=== PATIENT | male | born 1985 | race Caucasian/White ===

== ENCOUNTER 2022-01-17 17:28 | Emergency (ER) | payer OTHER, BC ==
[2022-01-17] MEDS ORDERED: Acetaminophen/oxyCODONE 325-5 MG Tab PO ONE (18:01)
[2022-01-17] MEDS ORDERED: Doxycycline 100 MG Cap PO ONE (18:01)
[2022-01-17] MEDS ORDERED: Sulfamethoxazole/Trimethoprim 800-160 MG Tab PO ONE (18:02)
[2022-01-17] MEDS ORDERED: Lidocaine 1% 10 ML MDV INJECT ONE (18:18)
== END 2022-01-17 20:00 | disposition home or self-care (01) ==
LOC: JD.ED 17:28
DX: N49.2 Inflammatory disorders of scrotum (principal); Z88.0 Allergy status to penicillin
CPT/HCPCS: 54700; 99283; A9270; 10060

== ENCOUNTER 2022-01-29 05:39 | Emergency (ER) | payer BC ==
[2022-01-29] MEDS ORDERED: methylPREDNISolone Sodium Succinate 125 MG/2 ML SDV ONE (05:42)
[2022-01-29] MEDS ORDERED: Famotidine 20 MG/2 ML SDV ONE ×2 (05:42→05:44)
[2022-01-29] MEDS ORDERED: diphenhydrAMINE 50 MG/ML SDV ONE (05:42)
[2022-01-29] MEDS ORDERED: EPINEPHrine 1:10,000 1 MG/10 ML Syringe IM ONE (06:16)
[2022-01-29] MEDS ORDERED: diphenhydrAMINE 50 MG/ML SDV IVPUSH ONE (06:16)
[2022-01-29] MEDS ORDERED: Famotidine 20 MG/2 ML SDV IVPUSH ONE (06:16)
[2022-01-29] MEDS ORDERED: EPINEPHrine 1 MG/ML SDV IM ONE ×2 (06:16→06:19)
[2022-01-29] MEDS ORDERED: EPINEPHrine 1 MG/ML 30 ML MDV IM ONE (06:16)
[2022-01-29] MEDS ORDERED: methylPREDNISolone Sodium Succinate 125 MG/2 ML SDV IVPUSH ONE (06:18)
== END 2022-01-29 09:15 | disposition home or self-care (01) ==
LOC: JD.ED 05:39
DX: T78.1XXA Other adverse food reactions, not elsewhere classified, initial encounter (principal); Z91.010 Allergy to peanuts
CPT/HCPCS: 96372; 96374; 96375; 99283; J0171; J1200; J2930; J3490; 99282